=== PATIENT | female | born 1965 | race Caucasian/White ===

== ENCOUNTER 2024-01-04 13:43 | Emergency (ER) | payer MEDICAID, SELFPAY ==
[2024-01-04] VITALS (8 sets, daily range): BP systolic 105–147; BP diastolic 84–122; PULSE 43–96; RESP 11–18; TEMP 36.2; O2SAT 100
--- NOTE | 2024-01-04 13:30 | RT.EKG_ITS ---
APPROVED REPORT Exam: Resting ECG Reason for Exam: chest pain Patient Location: E HR:42 bpm ECG Measurements Heart Rate 42 AXIS MD 383 P 0 QRSd 85 QRS 77 QT 520 T 96 QTc 437 Conclusion Second degree AV block, Mobitz II...multiple P waves Inferior infarct, acute...ST>0.10mV, T upright, II III aVF Anterior infarct, acute...ST >0.25mV, V2-V5 Second-degree Mobitz 2 heart block rate of 42 bpm with significant inferior ST segment elevation with reciprocal lateral depression. No prior for comparison.
--- NOTE | 2024-01-04 13:45 | DI.RAD_ITS ---
Exam(s) XR PORTABLE CHEST AP EXAM: XR PORTABLE CHEST AP CLINICAL HISTORY: CP TECHNIQUE: 2D digital imaging was performed. COMPARISON: No exams were available for comparison FINDINGS: Limited by overlying monitoring leads and fibular later pads. LUNGS: Visualized portions of the lungs are clear. No pleural abnormality seen. HEART: Normal size. AORTA: Normal diameter. BONES: Unremarkable for age. Soft tissues: Unremarkable. IMPRESSION: Limited exam. No acute findings. DATA REPOSITORY: RADIATION DOSE DELIVERED:
--- NOTE | 2024-01-04 13:46 | W.ED.GENAD ---
Discharge Plan Disposition Patient Disposition: Transfer-Acute Inpatient Care Specific Acute Inpt Facility: [facility] Discharge Details Clinical Impression: ST elevation PA (STEMI), Mobitz type 2 second degree atrioventricular block Primary Care Provider: Unknown,Unknown ED Provider: Hernan Glover Home Meds and New Rx's Prescriptions: No Action No Known Home Meds HPI General Date/Time Provider Initiated Documentation: 01/04/24 13:46. HPI Narrative: MDM This is a 54-year-old female with elevated BMI family history of coronary artery disease with inferior lateral STEMI without contraindications to systemic thrombolytics for which patient received weight-based dose of TNK. No tearing quality to suggest aortic dissection. No shortness of breath or hypoxia nor tachycardia to suggest PE. Patient was maintained on pacer pads in the emergency department given her high degree heart block. She did not require pacing. She received 600 mg of clopidogrel heparin drip prehospital aspirin. Will deferred nitroglycerin given inferior PA. Patient did have COVID last week however has no signs of pericardial effusion so my suspicion is low for myocarditis so I did not feel she had a contraindication to lytics. No signs of heart failure. Not a dialysis patient to suggest increased risk for tamponade. No cough to suggest pneumonia. 2:45 PM I signed patient out at bedside to [facility]. Patient be transferred to [facility]. Patient metabolic panel showing mild anion gap mild hyperglycemia but normal bicarbonate. No prior for comparison. Normal renal function. No acute electrolyte abnormalities. Normal lipase. CBC showing leukocytosis but no anemia. No thrombocytopenia. Portable chest x-ray with no acute findings. Normal reassuring magnesium. Troponin elevated at 57 ng/L. Chronic conditions affecting the care of the patient: N/A History obtained from an outside historian: Paramedics External record review: N/A Diagnostic interpretations performed by me: Per my independent interpretation chest x-ray shows: No acute cardiopulmonary process Per my independent interpretation EKG shows: Second-degree Mobitz 2 heart block rate of 42 bpm with significant inferior ST segment elevation with reciprocal lateral depression. No prior for comparison. ]Medications: Heparin clopidogrel TNKase Social determinants of health affecting disposition: N/A Management discussed with[place] [facility] [place]/interventions considered: N/A Response to therapies provided: N/A HPI This is a previously healthy 58-year-old female brought in the emergency department via EMS in the setting of chest pressure found to have inferior ST segment elevation PA. Patient was reportedly mowing the lawn this morning. Subsequently she went inside. She developed sudden onset central chest pressure. It did not radiate. She felt nearly as if she was going to pass out. She lost control of her bowels. No prior history of similar symptoms. Patient denies history of hypertension hyperlipidemia diabetes. She is not a smoker nor drinker. Exam General: Pale-appearing in no acute distress speaking in complete sentences. Head: Normocephalic, atraumatic. Eye: Extraocular eye movements intact. No conjunctival injection. No scleral icterus. Ear, nose, mouth, throat: Grossly normal inspection. Normal voice, handling secretions normally. Neck: Trachea midline. Cardiovascular: Well-perfused distal extremities. Irregular bradycardic rate Respiratory: Nonlabored respiration. Clear lungs Gastrointestinal: Nondistended abdomen. Soft nontender Musculoskeletal: No significant lower extremity pitting edema. Moving all 4 extremities spontaneously. Skin: Normal for age and race, grossly normal temperature and turgor. No acute rash. Neurologic: Alert and appropriate, no apparent acute deficits. Psychiatric: Mood and manner are appropriate. Grooming and personal hygiene are appropriate. Related Data Home Medications ?Medication ?Instructions ?Recorded ?Confirmed Unknown [No Known Home Meds] 01/04/24 01/04/24 Allergies Allergy/AdvReac Type Severity Reaction Status Date / Time No Known Allergies Allergy Unverified 01/04/24 13:50 Medical Decision Making Quality:SDOH Health Related Social Needs: No Data to Display Critical Care Time Critical Care Time Critical Care Time: Yes Total Critical Care Time: 60 Attestation: Inferior STEMI high degree heart block PFSH All Active Problems (Updated 01/04/24 @ 14:52 by Hernan Gloevr MD) Mobitz type 2 second degree atrioventricular block (Acute) ST elevation PA (STEMI) (Acute) Social History Smoking/Tobacco Use Status: Never Smoking risk assessment performed?: Yes Alcohol Intake: current Alcohol Intake frequency: holidays/special occasions only Drug use: Never Substance use type: does not use Housing: house Do you feel safe at home: Yes Do you feel safe in your relationship?: Yes POCUS Exam (ED) Limited Cardiac Exam DATE OF EXAM: 01/04/24 TIME OF EXAM: 15:20 PROVIDER THAT PERFORMED THE STUDY: Hernan Glover IS THIS A REPEAT EXAM DURING THIS ENCOUNTER: no REASON FOR EXAM: Chest pain VISUALIZED STRUCTURES: Four Chambers, Left ventricle and LVOT VIEW OBTAINED: Apical 4-Chamber, Parasternal long-axis, Parasternal short-axis and Subxiphoid PERTINENT FINDINGS/IMPRESSION: No pericardial effusion and No RV dilation DIFFERENTIAL DIAGNOSES: Aortic outflow track less than 4 cm, good squeeze, RV less than LV, no significant pericardial effusion. Question inferior wall motion abnormality Exam complete
[2024-01-04 14:05] LABS: Abs Immature Grans 0.07 10^3/uL (0.0-0.06); Absolute Basophil Count 0.05 10^3/uL (0.0-0.2); Absolute Eosinophil Count 0.15 10^3/uL (0.0-0.7); Absolute Lymphocyte Count 2.76 10^3/uL (1.2-3.4); Absolute Monocyte Count 0.69 10^3/uL (0.1-0.8); Basophils % 0.4 %; Eosinophils % 1.2 %; HCT 42.9 % (36.0-46.0); HGB 14.1 g/dL (11.2-15.7); Immature Grans % 0.5 %; Lymphocytes % 21.5 %; MCH 29.9 pg (27.0-33.0); MCHC 32.9 % (32.0-36.0); MCV 91 fL (80-95); MPV 9.8 fL (8.0-11.0); Monocytes % 5.4 %; Platelet Count 362 10^3/uL (130-400); RBC 4.72 10^6/uL (3.93-5.22); RDW 12.5 % (11.7-14.6); RDW-SD 41.9 fL; WBC 12.85 10^3/uL (4.4-10.8)
[2024-01-04 14:07] LABS: Absolute Neutrophil Count 9.12 10^3/uL (1.2-6.7)
[2024-01-04] MEDS: Tenecteplase 50 MG KIT 45 MG IVP (14:07)
[2024-01-04] MEDS: Heparin in 0.45% NaCl 25,000 UNIT/250 ML BAG 10 UNIT IV (14:16)
[2024-01-04] MEDS: Clopidogrel 300 MG TAB 600 MG PO (14:20)
[2024-01-04 14:29] LABS: Anion Gap 14.3 mmol/L (3-11); BUN 16 mg/dL (7-18); CO2 24.7 mmol/L (21.0-32.0); CREATININE 0.9 mg/dL (0.55-1.02); Chloride 101 mmol/L (98-107); Estimated GFR 73.19 (mL/min/1.73m2); Glucose 200 mg/dL (74-106); Lipase 39 U/L (16-77); Magnesium 1.8 mg/dL (1.8-2.4); Potassium 3.5 mmol/L (3.5-5.1); Sodium 140 mmol/L (136-145)
[2024-01-04 14:31] LABS: PTT Activated 23.3 sec (23.6-32.8)
[2024-01-04 14:44] LABS: Troponin I 57 ng/L (<or=51)
[2024-01-04 14:46] LABS: Calcium 9.3 mg/dL (8.5-10.1)
== END 2024-01-04 14:51 | disposition short-term general hospital (02) ==
PROVIDERS: Emergency Provider Emergency Medicine
DX: I21.19 ST elevation (STEMI) myocardial infarction involving other coronary artery of inferior wall (principal); I44.1 Atrioventricular block, second degree
CPT/HCPCS: 80048; 80053; 83690; 86850; 86900; 86901; 93005; 93308; 96374; 99285; 71045; 83735; 84484; 85025; 85730; 93010; 99284; J1644; J3101

== ENCOUNTER 2024-01-30 09:00 | Outpatient (RCR) | payer MEDICAID, SELFPAY ==
--- NOTE | 2024-01-14 11:45 | RT.EKG_ITS ---
APPROVED REPORT Exam: Resting ECG Reason for Exam: baseline Patient Location: O HR:56 bpm ECG Measurements Heart Rate 56 AXIS SD 189 P -10 QRSd 100 QRS -30 QT 439 T -15 QTc 424 Conclusion Sinus rhythm...normal P axis, V-rate 50- 99 Abnormal R-wave progression, early transition...QRS area>0 in V2 Left ventricular hypertrophy...multiple LVH criteria Inferior infarct, age indeterminate...Q>35mS, T neg, II III aVF
== END 2024-01-31 23:59 | disposition home or self-care (01) ==
LOC: CR 09:00
PROVIDERS: Visit Provider Internal Medicine Cardiovascular Disease
DX: I21.4 Non-ST elevation (NSTEMI) myocardial infarction (principal); Z95.5 Presence of coronary angioplasty implant and graft; Z51.89 Encounter for other specified aftercare
CPT/HCPCS: S9472

== ENCOUNTER 2024-02-01 03:10 | Outpatient (CLI) | payer MEDICAID, SELFPAY ==
--- NOTE | 2024-02-05 08:36 | TELEFU_ITS ---
Date of service: 02/01/24 Time of Service: 10:00 Nutrition Note NOTE: MEt with Nica for nutrition visit - referred for post heart attack Nica came with multiple days of diet history recorded - affirmed this helps. Nica is drinking a minimum of 40oz water daily. She has a lot of great plant choices and keeps her animal portions to 3-4oz. We reviewed great foods to encorporate for heart health - brightly colored non- starchy veggies, garlic/onion family, intact whole grains. nuts/seeds, green tea/hibiscus tea, fatty fish, greens, legumes. We also reviewed good guidelines to know and measure periodically - getting no more than 25g added sugar most days and getting a minimum of 25g fiber most days. Also stressed importance of protein for fullness and to help slow/prevent muscle loss - patient currently participates at cardiac rehab here at [facility].. Affirmed her actions with activity and diet changes are looking good to help offset her genetics. encouraged to continue with current diet changes and habits. will contact with any questions or need for further resources, menu analysis. Time Spent in Nutritional Counseling and Treatment: 40 minutes
== END 2024-02-01 03:11 | disposition home or self-care (01) ==
LOC: DS 03:11
PROVIDERS: Visit Provider Dietitian, Registered
DX: I21.19 ST elevation (STEMI) myocardial infarction involving other coronary artery of inferior wall (principal)
CPT/HCPCS: 00123; 97802

== ENCOUNTER 2024-02-27 09:44 | Outpatient (RCR) | payer MEDICAID, SELFPAY | END 2024-03-01 23:59 | disposition home or self-care (01) | LOC: CR 09:44 | PROVIDERS: Visit Provider Internal Medicine Cardiovascular Disease | DX: I21.3 ST elevation (STEMI) myocardial infarction of unspecified site (principal); Z51.89 Encounter for other specified aftercare | CPT/HCPCS: S9472 ==

== ENCOUNTER 2024-03-14 01:16 | Outpatient (CLI) | payer MEDICAID, SELFPAY ==
[2024-03-14 10:46] LABS: Abs Immature Grans 0.02 10^3/uL (0.0-0.06); Absolute Basophil Count 0.02 10^3/uL (0.0-0.2); Absolute Eosinophil Count 0.09 10^3/uL (0.0-0.7); Absolute Lymphocyte Count 1.19 10^3/uL (1.2-3.4); Absolute Monocyte Count 0.39 10^3/uL (0.1-0.8); Absolute Neutrophil Count 3.39 10^3/uL (1.2-6.7); Basophils % 0.4 %; Eosinophils % 1.8 %; HCT 38.3 % (36.0-46.0); HGB 12.8 g/dL (11.2-15.7); Immature Grans % 0.4 %; Lymphocytes % 23.3 %; MCHC 33.4 % (32.0-36.0); MCV 90 fL (80-95); MPV 9.9 fL (8.0-11.0); Monocytes % 7.6 %; Neutrophils % 66.5 %; Platelet Count 273 10^3/uL (130-400); RBC 4.27 10^6/uL (3.93-5.22); RDW 12.8 % (11.7-14.6); RDW-SD 42.3 fL
[2024-03-14 11:02] LABS: ALT 28 U/L (14-59); AST 21 U/L (15-37); Albumin 3.7 g/dL (3.4-5.0); Alkaline Phosphatase 61 U/L (46-116); Bilirubin, Direct 0.1 mg/dL (0.0-0.2); Bilirubin, Total 0.34 mg/dL (0.2-1.0); Total Protein 7.6 g/dL (6.4-8.2)
== END 2024-03-14 01:17 | disposition home or self-care (01) ==
LOC: LBO 01:16
PROVIDERS: Visit Provider Registered Nurse
DX: I21.02 ST elevation (STEMI) myocardial infarction involving left anterior descending coronary artery (principal)
CPT/HCPCS: 36415; 80076; 85025

== ENCOUNTER 2024-03-28 09:03 | Outpatient (RCR) | payer MEDICAID, SELFPAY | END 2024-04-01 23:59 | disposition home or self-care (01) | LOC: CR 09:03 | PROVIDERS: Visit Provider Internal Medicine Cardiovascular Disease | DX: I21.09 ST elevation (STEMI) myocardial infarction involving other coronary artery of anterior wall (principal); Z95.5 Presence of coronary angioplasty implant and graft; Z51.89 Encounter for other specified aftercare | CPT/HCPCS: S9472 ==

== ENCOUNTER 2024-05-01 03:53 | Outpatient (CLI) | payer MEDICAID, SELFPAY ==
[2024-05-01 10:07] LABS: Hemoglobin A1C 5.9 % (<5.7)
[2024-05-01 10:35] LABS: Calculated LDL 59 mg/dL (<100); Cholesterol 125 mg/dL (<200); Glucose 103 mg/dL (74-106); HDL Cholesterol 61 mg/dL (40-60); Triglyceride 29 mg/dL (<150); Vitamin D 25 Total 51.2 ng/mL (30-100)
[2024-05-02 09:49] LABS: Homocysteine 9.7 umol/L (5.0-13.9)
== END 2024-05-01 03:54 | disposition home or self-care (01) ==
PROVIDERS: PCP Naturopath; Visit Provider Naturopath
DX: Z13.228 Encounter for screening for other metabolic disorders (principal); Z13.220 Encounter for screening for lipoid disorders; Z13.1 Encounter for screening for diabetes mellitus; Z13.21 Encounter for screening for nutritional disorder
CPT/HCPCS: 36415; 80061; 82306; 82947; 83090; 83036

== ENCOUNTER 2024-05-02 10:21 | Outpatient (RCR) | payer MEDICAID, SELFPAY | END 2024-05-02 23:59 | disposition home or self-care (01) | LOC: CR 10:21 | PROVIDERS: PCP Naturopath; Visit Provider Internal Medicine Cardiovascular Disease | DX: I21.3 ST elevation (STEMI) myocardial infarction of unspecified site (principal); Z51.89 Encounter for other specified aftercare | CPT/HCPCS: S9472 ==

== ENCOUNTER 2024-05-30 11:05 | Outpatient (RCR) | payer SELFPAY ==
[2024-05-07 11:29] VITALS: BP 124/76; PULSE 76
[2024-05-09 11:23] VITALS: BP 124/61; PULSE 63
[2024-05-21 12:14] VITALS: BP 125/74; PULSE 72
[2024-05-23 11:06] VITALS: BP 121/63; PULSE 81
[2024-05-28 12:27] VITALS: BP 140/68; PULSE 68
[2024-05-30 11:26] VITALS: BP 144/73; PULSE 67; O2SAT 98
== END 2024-05-30 23:59 | disposition home or self-care (01) ==
LOC: CR 11:05
PROVIDERS: PCP Naturopath; Visit Provider Internal Medicine Cardiovascular Disease
DX: R69 Illness, unspecified (principal)

== ENCOUNTER 2024-06-27 11:18 | Outpatient (RCR) | payer SELFPAY ==
[2024-06-04 11:18] VITALS: BP 133/73; PULSE 73
[2024-06-06 11:07] VITALS: BP 117/74; PULSE 77
[2024-06-11 11:12] VITALS: BP 115/59; PULSE 60
[2024-06-18 11:16] VITALS: BP 136/74; PULSE 63
[2024-06-20 15:00] VITALS: BP 132/70; PULSE 63
[2024-06-25 11:31] VITALS: PULSE 63
[2024-06-25 11:42] VITALS: BP 130/78
[2024-06-27 11:31] VITALS: BP 142/75; PULSE 65
== END 2024-06-30 23:59 | disposition home or self-care (01) ==
LOC: CR 11:18
PROVIDERS: PCP Naturopath; Visit Provider Internal Medicine Cardiovascular Disease
DX: R69 Illness, unspecified (principal)

== ENCOUNTER 2024-07-29 13:09 | Outpatient (RCR) | payer SELFPAY ==
[2024-07-01 00:21] VITALS: BP 142/75; PULSE 65
[2024-07-04 12:15] VITALS: BP 134/81; PULSE 61
[2024-07-11 11:00] VITALS: BP 128/60; PULSE 63
[2024-07-18 11:08] VITALS: BP 131/68; PULSE 73
[2024-07-22 14:36] VITALS: BP 112/59; PULSE 66
[2024-07-24 14:00] VITALS: BP 135/59; PULSE 78
[2024-07-29 13:16] VITALS: BP 121/75; PULSE 62
== END 2024-07-30 23:59 | disposition home or self-care (01) ==
LOC: CR 13:09
PROVIDERS: PCP Naturopath; Visit Provider Internal Medicine Cardiovascular Disease

== ENCOUNTER 2024-08-12 04:00 | Outpatient (CLI) | payer MEDICAID, SELFPAY ==
[2024-08-12 10:38] LABS: Hemoglobin A1C 5.7 % (<5.7)
[2024-08-12 21:24] LABS: Calculated LDL 57 mg/dL (<100); Cholesterol 128 mg/dL (<200); HDL Cholesterol 63 mg/dL (>or=50); Triglyceride 41 mg/dL (<150)
== END 2024-08-12 04:01 | disposition home or self-care (01) ==
LOC: LBO 04:00
PROVIDERS: PCP Naturopath; Visit Provider Naturopath
DX: Z13.220 Encounter for screening for lipoid disorders (principal); Z13.1 Encounter for screening for diabetes mellitus
CPT/HCPCS: 36415; 80061; 83036

== ENCOUNTER 2024-08-21 11:10 | Outpatient (RCR) | payer SELFPAY ==
[2024-07-31 00:21] VITALS: BP 142/75; PULSE 65
[2024-08-05 13:35] VITALS: BP 131/71; PULSE 66
[2024-08-07 13:18] VITALS: BP 117/68; PULSE 55
[2024-08-12 13:23] VITALS: BP 135/77; PULSE 69
[2024-08-21 11:22] VITALS: BP 132/71; PULSE 62
== END 2024-08-30 23:59 | disposition home or self-care (01) ==
LOC: CR 11:10
PROVIDERS: PCP Naturopath; Visit Provider Internal Medicine Cardiovascular Disease
DX: R69 Illness, unspecified (principal)

== ENCOUNTER 2024-09-25 11:00 | Outpatient (RCR) | payer SELFPAY ==
[2024-08-31 00:23] VITALS: BP 142/75; PULSE 65
[2024-09-02 11:21] VITALS: BP 133/72; PULSE 62
[2024-09-04 13:58] VITALS: BP 114/72; PULSE 79
[2024-09-11 11:36] VITALS: BP 127/73; PULSE 61
[2024-09-18 12:28] VITALS: BP 150/69; PULSE 57
[2024-09-23 14:47] VITALS: BP 128/75; PULSE 66
[2024-09-25 11:17] VITALS: BP 129/78; PULSE 56
== END 2024-09-29 23:59 | disposition home or self-care (01) ==
LOC: CR 11:00
PROVIDERS: PCP Naturopath; Visit Provider Internal Medicine Cardiovascular Disease
DX: R69 Illness, unspecified (principal)

== ENCOUNTER 2024-10-30 11:00 | Outpatient (RCR) | payer SELFPAY ==
[2024-10-02 11:19] VITALS: BP 136/84; PULSE 58; O2SAT 98
[2024-10-07 13:42] VITALS: BP 122/66; PULSE 62
[2024-10-09 13:16] VITALS: BP 128/68; PULSE 64
[2024-10-14 11:09] VITALS: BP 118/71; PULSE 71
[2024-10-16 10:55] VITALS: BP 117/68; PULSE 68; O2SAT 95
[2024-10-21 12:52] VITALS: BP 121/71; PULSE 69
[2024-10-23 11:01] VITALS: BP 144/73; PULSE 69
[2024-10-28 11:15] VITALS: BP 133/63; PULSE 64
[2024-10-30 11:14] VITALS: BP 126/73; PULSE 58; O2SAT 97
== END 2024-10-30 23:59 | disposition home or self-care (01) ==
LOC: CR 11:00
PROVIDERS: PCP Naturopath; Visit Provider Internal Medicine Cardiovascular Disease
DX: R69 Illness, unspecified (principal)

== ENCOUNTER 2024-11-27 11:00 | Outpatient (RCR) | payer SELFPAY ==
[2024-10-31 00:11] VITALS: BP 126/73; PULSE 58
[2024-11-04 13:54] VITALS: BP 127/74; PULSE 58
[2024-11-06 11:27] VITALS: BP 123/78; PULSE 62; O2SAT 96
[2024-11-11 11:00] VITALS: BP 114/61; PULSE 61
[2024-11-13 11:08] VITALS: BP 141/74; PULSE 60
[2024-11-20 11:19] VITALS: BP 131/70; PULSE 54
[2024-11-25 11:18] VITALS: BP 126/63; PULSE 55
[2024-11-27 10:47] VITALS: BP 130/76; PULSE 58; O2SAT 96
== END 2024-11-30 23:59 | disposition home or self-care (01) ==
LOC: CR 11:00
PROVIDERS: PCP Naturopath; Visit Provider Internal Medicine Cardiovascular Disease
DX: R69 Illness, unspecified (principal)

== ENCOUNTER 2024-12-25 11:00 | Outpatient (RCR) | payer SELFPAY ==
[2024-12-02 11:27] VITALS: BP 126/65; PULSE 66
[2024-12-04 12:59] VITALS: BP 127/74; PULSE 62
[2024-12-09 11:14] VITALS: BP 132/80; PULSE 64
[2024-12-11 11:00] VITALS: BP 126/77; PULSE 79
[2024-12-18 15:01] VITALS: BP 126/78; PULSE 57
[2024-12-25 11:00] VITALS: BP 116/73; PULSE 69
== END 2024-12-30 23:59 | disposition home or self-care (01) ==
LOC: CR 11:00
PROVIDERS: PCP Naturopath; Visit Provider Internal Medicine Cardiovascular Disease
DX: R69 Illness, unspecified (principal)

== ENCOUNTER 2025-01-29 11:00 | Outpatient (RCR) | payer SELFPAY ==
[2024-12-31 00:10] VITALS: BP 116/73; PULSE 69
[2025-01-01 11:22] VITALS: BP 121/75; PULSE 68
[2025-01-06 11:31] VITALS: BP 133/71; PULSE 60
[2025-01-13 11:27] VITALS: BP 134/84; PULSE 68
[2025-01-15 11:23] VITALS: BP 115/65; PULSE 74
[2025-01-20 11:30] VITALS: BP 123/79; PULSE 68
[2025-01-22 11:39] VITALS: BP 108/75; PULSE 68
[2025-01-29 10:58] VITALS: BP 123/67; PULSE 56; O2SAT 96
== END 2025-01-30 23:59 | disposition home or self-care (01) ==
LOC: CR 11:00
PROVIDERS: PCP Naturopath; Visit Provider Internal Medicine Cardiovascular Disease
DX: R69 Illness, unspecified (principal)

== ENCOUNTER 2025-02-19 08:49 | Day surgery (SDC) | payer MEDICAID, SELFPAY ==
--- NOTE | 2025-02-19 05:44 | W.ANESPRE ---
General Info Date of Service Date Performed: 02/19/25 Height: 5 ft 4 in Weight: 75.75 kg Body Mass Index (BMI): 28.6 Surgical Procedure: Operation Date: 02/19/25 10:35 Proposed Procedure Side Surgeon miguel Wong MD Meds Allergies and Home Medications Allergies Allergy/AdvReac Type Severity Reaction Status Date / Time gluten Allergy Mild Diarrhea Verified 02/19/25 09:21 Home Medication Medication Instructions Recorded bisacodyl 5 mg tablet,delayed 5 mg PO ONCE #4 tabs 01/29/25 release (Dulcolax (bisacodyl)) losartan 25 mg tablet 25 mg PO DAILY 01/29/25 metoprolol succinate 25 mg 25 mg PO DAILY 01/29/25 tablet,extended release 24 hr nitroglycerin 0.4 mg sublingual 0.4 mg sublingual Q5-15M PRN 01/29/25 tablet polyethylene glycol 3350 17 17 g PO ONCE #238 grams 01/29/25 gram/dose oral powder rosuvastatin 20 mg tablet 20 mg PO DAILY 01/29/25 aspirin 81 mg tablet 81 mg PO DAILY 01/30/25 Current Visit Medications: Current Medications Generic Name Dose Route Start Last Admin Trade Name Freq PRN Reason Stop Dose Admin Ringer's Solution 1,000 mls @ 80 mls/hr 02/19/25 06:00 IV 02/19/25 23:59 INFUSION EDDY IV Miscellaneous Supplies 1 each 02/19/25 06:00 Iv Access IV 02/19/25 23:59 DIRECTED EDDY Sodium Biphosphate/Sodium Phosphate 133 ml 02/19/25 06:00 Na Phosphate Enema-Adult 133 Ml Btl IL 02/19/25 23:59 DIRECTED PRN Sodium Chloride 0 ml 02/19/25 06:00 Normal Saline Flush 10 Ml Syr IV 02/19/25 23:59 PRN PRN Sodium Chloride 0 ml 02/19/25 06:00 Normal Saline 10 Ml Vial IJ 02/19/25 23:59 DIRECTED PRN Sterile Water 0 ml 02/19/25 06:00 Water,Injection,Sterile 10 Ml Vial IJ 02/19/25 23:59 DIRECTED PRN PFSH Medical History Medical History Celiac disease ST elevation SD (STEMI) Pure hypercholesterolemia Surgical History Surgical History Hx of heart artery stent x2 History of cardiac cath (~01/2024) Tobacco Smoking/Tobacco Use Status: Never Alcohol Alcohol Intake: current Alcohol intake frequency: holidays/special occasions only Substance Use Substance use: Never Substance use type: does not use Vital Signs and Lab Results Vital Signs Most Recent Vital Signs in EMR: Temp Pulse Resp BP Pulse Ox 36.5 C 64 12 140/90 99 02/19/25 09:24 02/19/25 09:24 02/19/25 09:24 02/19/25 09:24 02/19/25 09:24 Imaging and Studies Imaging and Studies Study information below may be from another EMR and interpreted by another provider. Please see original notes in EMR for more complete details. EKG Summary: 01/15/24 Conclusion Sinus rhythm...normal P axis, V-rate 50- 99 Abnormal R-wave progression, early transition...QRS area>0 in V2 Left ventricular hypertrophy...multiple LVH criteria Inferior infarct, age indeterminate...Q>35mS, T neg, II III aVF Anesthesia Assessment and Plan Anesthesia History Personal History: No History of Anesthesia Complications Family History: No Family History of Anesthesia Complications Exercise Tolerance Exercise Tolerance: Metabolic Equivalents>4 Pertinent Negatives Pertinent Negatives: No Symptoms of GERD, No Major Cardiovascular Symptoms or Complaints, No Major Pulmonary Symptoms or Complaints and No History of CVA/TIA Cardiac & Pulmonary Exam Cardiac Exam: Normal S1/S2 Heart Sounds Pulmonary Exam: Clear Bilateral Breath Sounds Implantable Cardiac Device Does patient have a Pacemaker or an ICD?: No Airway Exam Known Difficult Airway: No Mallampati Class: 2 Mouth Opening: Normal (> 3cm) Thyromental Distance: Greater than 3 cm Neck Range of Motion: Full ROM Neck Circumference: Normal Teeth Condition: Normal Dentition ASA Classification ASA Score: ASA 2 Emergency Case?: No NPO Status NPO Status: NPO Clears >2 hours, Solids >8 hours Anesthesia Plan Resuscitation Status: Full Code Anesthesia Technique: General Anesthesia Airway Planned: Natural Airway Monitors Used: Standard Monitors
[2025-02-19 09:24] VITALS: BP 140/90; PULSE 64; RESP 12; TEMP 36.5; O2SAT 99
[2025-02-19] MEDS: Lactated Ringers 1,000 ML 80 ML IV (09:46)
[2025-02-19 10:34] VITALS: BMI 28.6
--- NOTE | 2025-02-19 10:47 | W.PM.DSUDISC ---
Date of service: 02/19/25 Discharge Plan Disposition Patient Disposition: Home Condition: Stable Discharge Details Reason For Visit: colonoscopy Attending Provider: Moraima Wong Primary Care Provider: Husam Yost Home Meds and New Rx's Prescriptions: Continued losartan 25 mg tablet 25 mg PO DAILY nitroglycerin 0.4 mg tablet, sublingual 0.4 mg sublingual Q5-15M PRN Rx Instructions: do not exceed 3 doses per episode metoprolol succinate 25 mg tablet extended release 24 hr 25 mg PO DAILY rosuvastatin 20 mg tablet 20 mg PO DAILY aspirin 81 mg tablet 81 mg PO DAILY Discontinued bisacodyl [Dulcolax (bisacodyl)] 5 mg tablet,delayed release (DR/EC) 5 mg PO ONCE Qty: 4 0RF Rx Instructions: Take per colonoscopy instructions provided by ordering providers office polyethylene glycol 3350 17 gram/dose powder 17 g PO ONCE Qty: 238 0RF Rx Instructions: Take per colonoscopy instructions provided by ordering providers office Discharge Instructions Additional Instructions: Normal colonoscopy. Zero polyps. Next screening colonoscopy will be due in 10 years. Your colon was somewhat narrow, Id call it medium in terms of difficulty to move through. That being said your prep was excellent, and I had no trouble or concern about your safety or visibility inside the colon at any point. No unusual findings. Healthy colon and rectum without polyps. Good prep. Stand Alone Forms: Portal Information Activity:: Activity as Tolerated Diet:: As Tolerated Discharge Orders Discharge Orders: Discharge Order (Routine); Ordered 02/19/25 Ordered By: Moraima Wong DS: Diagnosis Discharge Diagnosis (1) Encounter for screening colonoscopy: Status: Acute
--- NOTE | 2025-02-19 10:49 | W.COLOREPORT ---
Date of service: 02/19/25 Time of Service: 11:13 Colonoscopy Report Date of procedure: 02/19/25 Pre-op diagnosis general: Screening for colorectal cancer Post-op diagnosis procedure note: same Procedure: Colonoscopy Surgeon: Moraima Wong Anesthesia Type: General:No Airway Estimated blood loss (mL): 0 Pathology: none sent Complications: None Indications: screening for colorectal cancer Prep: Miralax/Dulcolax (good/excellent) Procedure Description: Informed consent was obtained and the patient was taken to the procedure area. The patient was placed in left lateral decubitus position on the procedure table. Timeout was performed. Anesthesia was induced. A lubricated colonoscope was inserted through the anus and passed to the cecum. The cecum was identified by the ileocecal valve and the appendiceal orifice. The scope was then slowly withdrawn and the colonic and rectal mucosa examined. TI intubated and examined. It appears normal. There are no colon or rectal mass lesions, polyps, AVMs. There is no inflammatory change. No diverticulosis was seen. The scope was retroflexed in the anorectal junction examined. Uncomplicated internal hemorrhoids present. Assessment and plan: Screening for colorectal cancer Normal colonoscopy. Next screening colonoscopy will be due in 10 years.
[2025-02-19 11:17] VITALS: BP 129/80; PULSE 70; RESP 16; TEMP 36.4; O2SAT 97
--- NOTE | 2025-02-19 11:42 | W.ANESPOSTOP ---
Postoperative Evaluation Date, Time and Location Date Performed: 02/19/25 Time Performed: 11:17 Patient Location: Day Surgery Unit Vital Signs Most Recent Imported Vital Signs: Most Recent Vital Signs Temp Pulse Resp BP Pulse Ox 36.4 C L 70 16 129/80 97 02/19/25 11:17 02/19/25 11:17 02/19/25 11:17 02/19/25 11:17 02/19/25 11:17 Pain Score Most Recent Pain Score: Most Recent Pain Score Pain Level 0 02/19/25 11:17 Assessment Mental Status: Awake (Alert & Oriented to Patient Baseline) Airway and Respiratory Function: Patent airway with normal (patient baseline) respiratory exam Cardiovascular Function: Hemodynamically Stable Hydration Status: Adequately Hydrated Nausea & Vomiting: No Nausea or Vomiting Pain: Pt. Denies Any Pain Peripheral Nerve Block: Patient did not receive a nerve block
[2025-02-19 11:45] VITALS: BP 131/78; PULSE 66; RESP 16; TEMP 36.4; O2SAT 99
== END 2025-02-19 11:58 | disposition home or self-care (01) ==
PROVIDERS: PCP Naturopath; Visit Provider Surgery
PROC: 0DJD8ZZ Inspection of Lower Intestinal Tract, Via Natural or Artificial Opening Endoscopic (ICD-10-PCS; CPT 45378; principal; 2025-02-19 10:30)
DX: Z12.11 Encounter for screening for malignant neoplasm of colon (principal)
CPT/HCPCS: 45378; J2003; J2704

== ENCOUNTER 2025-02-24 11:00 | Outpatient (RCR) | payer SELFPAY ==
[2025-01-31 00:21] VITALS: BP 123/67; PULSE 56
[2025-02-03 11:41] VITALS: BP 137/73; PULSE 56
[2025-02-05 11:23] VITALS: BP 136/69; PULSE 63
[2025-02-10 11:11] VITALS: BP 129/7; PULSE 63
[2025-02-17 11:54] VITALS: BP 151/70; PULSE 63
[2025-02-24 11:12] VITALS: BP 133/74; PULSE 55
== END 2025-03-01 23:59 | disposition home or self-care (01) ==
LOC: CR 11:00
PROVIDERS: PCP Naturopath; Visit Provider Internal Medicine Cardiovascular Disease
DX: R69 Illness, unspecified (principal)

== ENCOUNTER 2025-03-05 11:03 | Outpatient (RCR) | payer SELFPAY ==
[2025-03-02 00:08] VITALS: BP 133/74; PULSE 55
[2025-03-05 11:13] VITALS: BP 131/74; PULSE 74
== END 2025-04-01 23:59 | disposition home or self-care (01) ==
LOC: CR 11:03
PROVIDERS: PCP Naturopath; Visit Provider Internal Medicine Cardiovascular Disease
DX: R69 Illness, unspecified (principal)

== ENCOUNTER 2025-03-08 07:53 | Inpatient (IN) | payer MEDICAID, SELFPAY ==
[2025-03-08] VITALS (41 sets, daily range): BP systolic 132–178; BP diastolic 74–100; PULSE 64–99; RESP 12–24; TEMP 36.6–37; O2SAT 94–100
--- NOTE | 2025-03-08 07:45 | RT.EKG_ITS ---
APPROVED REPORT Exam: Resting ECG Reason for Exam: chest pain, dizzy Patient Location: E HR:78 bpm ECG Measurements Heart Rate 78 AXIS AZ 176 P 21 QRSd 92 QRS -40 QT 397 T 34 QTc 453 Conclusion Sinus rhythm...normal P axis, V-rate 60- 99 Inferior infarct, old...Q >35mS, II III aVF
[2025-03-08] MEDS: ALPRAZolam 0.25 MG TAB PO (08:47)
[2025-03-08 08:59] LABS: Abs Immature Grans 0.03 10^3/uL (0.0-0.06); HCT 43.0 % (36.0-46.0); HGB 14.1 g/dL (11.2-15.7); Immature Grans % 0.4 %; MCH 28.8 pg (27.0-33.0); MCHC 32.8 % (32.0-36.0); MCV 88 fL (80-95); MPV 9.6 fL (8.0-11.0); Platelet Count 330 10^3/uL (130-400); RBC 4.90 10^6/uL (3.93-5.22); RDW 12.8 % (11.7-14.6); RDW-SD 41.1 fL; WBC 7.42 10^3/uL (4.4-10.8)
[2025-03-08 09:18] LABS: Magnesium 1.8 mg/dL (1.6-2.6)
[2025-03-08 09:19] LABS: ALT 38 U/L (10-49); AST 44 U/L (<34); Albumin 4.7 g/dL (3.2-5.0); Alkaline Phosphatase 63 U/L (46-116); Anion Gap 9.7 mmol/L (3-11); BUN 11 mg/dL (9-23); Bilirubin, Total 0.50 mg/dL (0.2-1.2); CO2 27.3 mmol/L (20.0-31.0); Calcium 9.3 mg/dL (8.3-10.6); Chloride 105 mmol/L (98-107); Glucose 130 mg/dL (74-106); Potassium 3.6 mmol/L (3.5-5.1); Sodium 142 mmol/L (136-145); Total Protein 8.0 g/dL (5.7-8.2)
--- NOTE | 2025-03-08 09:30 | DI.RAD_ITS ---
Exam(s) XR PORTABLE CHEST AP EXAM: XR PORTABLE CHEST AP CLINICAL HISTORY: pain. TECHNIQUE: 2D digital imaging was performed. COMPARISON: CR XR PORTABLE CHEST AP from 01/04/2024 FINDINGS: Single AP portable view. Heart size is upper normal. The mediastinum is not widened. Lungs are clear. No infiltrates nor obvious pleural effusions. Benign calcified granuloma in the lower right lung again noted. IMPRESSION: No acute pulmonary findings on this single AP portable view of the chest. DATA REPOSITORY: RADIATION DOSE DELIVERED:
[2025-03-08 09:37] LABS: Troponin I 1700 ng/L (<35)
[2025-03-08] MEDS: Heparin in 0.45% NaCl 25,000 UNIT/250 ML BAG 9.5 UNIT IVINF (09:57)
--- NOTE | 2025-03-08 09:59 | W.ED.GENAD ---
Discharge Plan Disposition Patient Disposition: Admit to [facility] Condition: Serious Discharge Details Clinical Impression: Acute non-ST elevation myocardial infarction (NSTEMI) Primary Care Provider: Husam Yost ED Provider: Orlando Gutiérrez Home Meds and New Rx's Prescriptions: No Action losartan 25 mg tablet 25 mg PO DAILY nitroglycerin 0.4 mg tablet, sublingual 0.4 mg sublingual Q5-15M PRN Rx Instructions: do not exceed 3 doses per episode metoprolol succinate 25 mg tablet extended release 24 hr 25 mg PO DAILY rosuvastatin 20 mg tablet 20 mg PO DAILY aspirin 81 mg tablet 81 mg PO DAILY HPI General Mode of arrival: ambulatory. Date/Time Provider Initiated Documentation: 03/08/25 07:56. Limitations to Documentation: no limitations. Information obtained by: patient. HPI Narrative: 59-year-old female with history of coronary artery disease, status post STEMI 01/23, MARCIA to LAD and RCA, returns today with chest pain. Patient notes over the past week she has had intermittent exertional chest pain that resolves with rest. This morning she woke up with chest pain that was present at rest but has since resolved. She had associated dizziness and nausea. Pain described as squeezing and pressure. Related Data Home Medications ?Medication ?Instructions ?Recorded ?Confirmed losartan 25 mg tablet 25 mg PO DAILY 01/29/25 03/08/25 metoprolol succinate 25 mg 25 mg PO DAILY 01/29/25 03/08/25 tablet,extended release 24 hr nitroglycerin 0.4 mg sublingual 0.4 mg sublingual Q5-15M PRN 01/29/25 03/08/25 tablet rosuvastatin 20 mg tablet 20 mg PO DAILY 01/29/25 03/08/25 aspirin 81 mg tablet 81 mg PO DAILY 01/30/25 03/08/25 Allergies Allergy/AdvReac Type Severity Reaction Status Date / Time gluten Allergy Mild Diarrhea Verified 03/08/25 07:58 General Stated Complaint: Chest Pain ROSA: 3 Exam Const General: cooperative and no acute distress HENMT Mouth: moist mucous membranes Eyes Conjunctivae: normal conjunctivae Sclera: normal sclerae Resp Auscultation: clear to auscultation bilaterally, no rales, no rhonchi and no wheezes Cardio Rate: regular rate and not tachycardic Rhythm: regular rhythm Heart Sounds: no gallops, no murmurs and no rubs GI Palpation: soft, not firm, no guarding, no masses, not rigid and nontender Skin General skin exam: no rashes or lesions noted Neuro General: patient alert, patient awake and tone normal Extrem General: no calf tenderness and no edema Psych Appearance: grossly normal Mental Status: mental status grossly normal Affect: anxious affect Course Vital Signs Vital signs: Vital Signs Temperature 36.6 C 03/08/25 07:59 Pulse 90 03/08/25 07:59 Respiratory Rate 18 03/08/25 07:59 Blood Pressure 160/80 H 03/08/25 07:59 Pulse Oximetry 99 03/08/25 07:59 Temperature 36.6 C 03/08/25 07:59 Temperature Source Oral 03/08/25 07:59 Pulse 71 03/08/25 08:31 Pulse 81 03/08/25 08:20 Respiratory Rate 18 03/08/25 08:20 Respiratory Effort Normal 03/08/25 08:08 Respiratory Depth Normal 03/08/25 08:08 Respiratory Pattern Normal 03/08/25 08:08 Blood Pressure 153/75 H 03/08/25 08:31 Blood Pressure Mean 102 03/08/25 08:31 Blood Pressure Position Supine 03/08/25 07:59 Pulse Oximetry 97 03/08/25 08:31 Oxygen Delivery Method Room Air 03/08/25 07:59 Oxygen Flow Rate 0 03/08/25 07:59 Pain Level 4 03/08/25 08:08 Lab/Test Results Lab/Test Results: Laboratory Tests Range/Units 03/08/25 08:23 WBC (4.4-10.8) 10^3/uL 7.42 RBC (3.93-5.22) 10^6/uL 4.90 Hgb (11.2-15.7) g/dL 14.1 Hct (36.0-46.0) % 43.0 MCV (80-95) fL 88 MCH (27.0-33.0) pg 28.8 MCHC (32.0-36.0) % 32.8 RDW (11.7-14.6) % 12.8 Plt Count (130-400) 10^3/uL 330 MPV (8.0-11.0) fL 9.6 Immature Gran % % 0.4 Neutrophils % % 77.6 Lymphocytes % % 15.4 Monocytes % % 5.8 Eosinophils % % 0.5 Basophils % % 0.3 Nucleated RBC % (0.0-0.3) % 0.0 Absolute Neutrophils (1.2-6.7) 10^3/uL 5.76 Absolute Lymphocytes (1.2-3.4) 10^3/uL 1.14 L Absolute Monocytes (0.1-0.8) 10^3/uL 0.43 Absolute Eosinophils (0.0-0.7) 10^3/uL 0.04 Absolute Basophils (0.0-0.2) 10^3/uL 0.02 Sodium (136-145) mmol/L 142 Potassium (3.5-5.1) mmol/L 3.6 Chloride (98-107) mmol/L 105 Carbon Dioxide (20.0-31.0) mmol/L 27.3 Anion Gap (3-11) mmol/L 9.7 BUN (9-23) mg/dL 11 Creatinine (0.55-1.02) mg/dL 0.70 Est GFR (CKD-EPI 2020) (mL/min/1.73m2) 84.88 Glucose (74-106) mg/dL 130 H Calcium (8.3-10.6) mg/dL 9.3 Magnesium (1.6-2.6) mg/dL 1.8 Total Bilirubin (0.2-1.2) mg/dL 0.50 AST (<34) U/L 44 H ALT (10-49) U/L 38 Alkaline Phosphatase (46-116) U/L 63 Troponin I (<35) ng/L 1700 H* Total Protein (5.7-8.2) g/dL 8.0 Albumin (3.2-5.0) g/dL 4.7 Medical Decision Making 59-year-old female with history of coronary artery disease status post STEMI 01/23, here with intermittent exertional chest pain over the past week, chest pain at rest this morning, now resolved, associated nausea and dizziness. Patient hypertensive on arrival. Patient is anxious. Concern for ACS. EKG was reviewed and interpreted by me: Please report, sinus rhythm 78 bpm, no STEMI. Nondiagnostic. Labs reviewed and troponin is significantly elevated at 1700. Results discussed with patient. Patient reassessed and anxiety improved after Xanax. I have contacted [facility] transfer center to discuss transfer with cardiology. Patient did take aspirin 81 mg today. I will give additional 243 mg. I will start heparin bolus and infusion. -- Spoke with Vivi, [facility] cardiology, Dr. Hawthorne to accept patient. Plan for transfer when bed available - likely tomorrow AM. Recommends echo in AM. Recommends call with worsening condition including return of pain or ecg changes to consider more emergent transfer. 1000 --case was reviewed with Dr. Guadarrama, on-call hospitalist, discussed ED presentation and course, he will admit the patient. Lab Data Lab results reviewed: Yes I reviewed the patient's lab results. Labs: Laboratory Tests Range/Units 03/08/25 08:23 WBC (4.4-10.8) 10^3/uL 7.42 RBC (3.93-5.22) 10^6/uL 4.90 Hgb (11.2-15.7) g/dL 14.1 Hct (36.0-46.0) % 43.0 MCV (80-95) fL 88 MCH (27.0-33.0) pg 28.8 MCHC (32.0-36.0) % 32.8 RDW (11.7-14.6) % 12.8 Plt Count (130-400) 10^3/uL 330 MPV (8.0-11.0) fL 9.6 Immature Gran % % 0.4 Neutrophils % % 77.6 Lymphocytes % % 15.4 Monocytes % % 5.8 Eosinophils % % 0.5 Basophils % % 0.3 Nucleated RBC % (0.0-0.3) % 0.0 Absolute Neutrophils (1.2-6.7) 10^3/uL 5.76 Absolute Lymphocytes (1.2-3.4) 10^3/uL 1.14 L Absolute Monocytes (0.1-0.8) 10^3/uL 0.43 Absolute Eosinophils (0.0-0.7) 10^3/uL 0.04 Absolute Basophils (0.0-0.2) 10^3/uL 0.02 APTT (20.6-30.2) sec 25.6 Sodium (136-145) mmol/L 142 Potassium (3.5-5.1) mmol/L 3.6 Chloride (98-107) mmol/L 105 Carbon Dioxide (20.0-31.0) mmol/L 27.3 Anion Gap (3-11) mmol/L 9.7 BUN (9-23) mg/dL 11 Creatinine (0.55-1.02) mg/dL 0.70 Est GFR (CKD-EPI 2020) (mL/min/1.73m2) 84.88 Glucose (74-106) mg/dL 130 H Calcium (8.3-10.6) mg/dL 9.3 Magnesium (1.6-2.6) mg/dL 1.8 Total Bilirubin (0.2-1.2) mg/dL 0.50 AST (<34) U/L 44 H ALT (10-49) U/L 38 Alkaline Phosphatase (46-116) U/L 63 Troponin I (<35) ng/L 1700 H* Total Protein (5.7-8.2) g/dL 8.0 Albumin (3.2-5.0) g/dL 4.7 Critical Care Time Critical Care Time Critical Care Time: Yes Total Critical Care Time: 40 Attestation: Due to a high probability of clinically significant, life threatening deterioration, the patient required my highest level of preparedness to intervene emergently and I personally spent this critical care time directly and personally managing the patient. This critical care time included obtaining a history; examining the patient; pulse oximetry; ordering and review of studies; arranging urgent treatment with development of a management plan; evaluation of patient's response to treatment; frequent reassessment; and, discussions with other providers. This critical care time was performed to assess and manage the high probability of imminent, life-threatening deterioration that could result in multi-organ failure. It was exclusive of separately billable procedures and treating other patients and teaching time. Please see MDM section and the rest of the note for further information on patient assessment and treatment. PFSH All Active Problems (Updated 03/08/25 @ 10:06 by Orlando Gutiérrez MD) Acute non-ST elevation myocardial infarction (NSTEMI) (Acute) HTN (hypertension) (Chronic) CAD (coronary artery disease) (Chronic) NSTEMI (non-ST elevated myocardial infarction) (Acute) Medical History Celiac disease ST elevation [place] (STEMI) Pure hypercholesterolemia Surgical History History of colonoscopy (~02/19/25) Hx of heart artery stent x2 History of cardiac cath (~01/2024) Social History Smoking/Tobacco Use Status: Never Smoking risk assessment performed?: Yes Alcohol Intake: current Alcohol Intake frequency: holidays/special occasions only Drug use: Never Substance use type: does not use Housing: house Do you feel safe at home: Yes Do you feel safe in your relationship?: Yes
[2025-03-08 10:00] LABS: PTT Activated 25.6 sec (20.6-30.2)
--- NOTE | 2025-03-08 10:02 | W.PM.HP.N ---
Date of service: 03/08/25 Time of Service: 10:02 Assessment and Plan Assessment and plan (1) NSTEMI (non-ST elevated myocardial infarction): Status: Acute Assessment and plan: - Patient initially presented with chest pain and was found to have an NSTEMI with initial troponin of 1700, and EKG showing mild ST depressions in V2, V3, V4, V5 and V6 - Was given p.o. aspirin and started on heparin drip - ED discussed with [facility] [place] who accepted patient for transfer for left heart catheterization, bed likely not available until 03/09/2025 -Without active chest pain, will give as needed sublingual nitro - Continue 81 mg daily aspirin - Changing home statin to Lipitor 40 at bedtime (2) CAD (coronary artery disease): Status: Chronic Assessment and plan: - History of, with STEMI and February 2024 - Treatment as noted above (3) HTN (hypertension): Status: Chronic Assessment and plan: - Continue home losartan Discharge Planning Discharge Planning: Accepted to [facility] [place] once bed is available likely in the next 24 to 36 hours History of Present Illness History of Present Illness Chief Complaint: chest pain Narrative: 59-year-old female with a past medical history of coronary artery disease status post STEMI in January 2024 presents to the emergency department with chest pain. Patient presented because she noted over the last week she has had intermittent exertional chest pain that had been resolving with rest. However, earlier this morning prior to arrival she woke with chest pain that has been present at rest but is since resolved since presenting to the emergency department. She states that she had associated dizziness and nausea both of which have also resolved. She described the chest pain as the central of her chest, squeezing and pressure-like in nature. She denied any headache, lightheadedness, fever, neck back or arm pain, shortness of breath, nausea vomiting or diarrhea. In the emergency department the patient was noted as having normal vital signs, normal CBC, CMP and normal physical exam. EKG showed ST depressions in V2 through V6 though this may have been from patient's previous STEMI. Troponin was found to be elevated at 1700. Case was discussed with [facility] [place] who recommended treating patient for NSTEMI and they have accepted the patient for transfer once a bed is available likely 03/09/2025. At which time emergency room provider paged hospitalist for admission for patient with an NSTEMI. Review of Systems All systems reviewed & are unremarkable except as noted in HPI and below PFSH All Active Problems (Updated 03/08/25 @ 10:06 by Orlando Gutiérrez MD) Acute non-ST elevation myocardial infarction (NSTEMI) (Acute) HTN (hypertension) (Chronic) CAD (coronary artery disease) (Chronic) NSTEMI (non-ST elevated myocardial infarction) (Acute) Medical History Celiac disease ST elevation [place] (STEMI) Pure hypercholesterolemia Surgical History History of colonoscopy (~02/19/25) Hx of heart artery stent x2 History of cardiac cath (~01/2024) Social History Smoking/Tobacco Use Status: Never Smoking risk assessment performed?: Yes Alcohol Intake: current Alcohol Intake frequency: holidays/special occasions only Drug use: Never Substance use type: does not use Housing: apartment Do you feel safe at home: Yes Do you feel safe in your relationship?: Yes Meds Allergies and Home Medications Allergies Allergy/AdvReac Type Severity Reaction Status Date / Time gluten Allergy Mild Diarrhea Verified 03/08/25 07:58 Home Medications ?Medication ?Instructions ?Recorded ?Confirmed ?Type losartan 25 mg tablet 25 mg PO DAILY 01/29/25 03/08/25 History metoprolol succinate 25 mg 25 mg PO DAILY 01/29/25 03/08/25 History tablet,extended release 24 hr nitroglycerin 0.4 mg sublingual 0.4 mg sublingual Q5-15M PRN 01/29/25 03/08/25 History tablet rosuvastatin 20 mg tablet 20 mg PO DAILY 01/29/25 03/08/25 History aspirin 81 mg tablet 81 mg PO DAILY 01/30/25 03/08/25 History Exam Narrative Exam Narrative: Well-appearing female sitting up in the chair no acute distress, ANO x 4, heart regular rhythm, lungs clear to auscultation bilaterally, abdomen soft, nontender, nondistended Results Labs 03/08/25 08:23 03/08/25 08:23 Labs: Laboratory Results - last 24 hr 03/08/25 08:23 WBC 7.42 RBC 4.90 Hgb 14.1 Hct 43.0 MCV 88 MCH 28.8 MCHC 32.8 RDW 12.8 Plt Count 330 MPV 9.6 Immature Gran % 0.4 Neutrophils % 77.6 Lymphocytes % 15.4 Monocytes % 5.8 Eosinophils % 0.5 Basophils % 0.3 Nucleated RBC % 0.0 Absolute Neutrophils 5.76 Absolute Lymphocytes 1.14 L Absolute Monocytes 0.43 Absolute Eosinophils 0.04 Absolute Basophils 0.02 Sodium 142 Potassium 3.6 Chloride 105 Carbon Dioxide 27.3 Anion Gap 9.7 BUN 11 Creatinine 0.70 Est GFR (CKD-EPI 2020) 84.88 Glucose 130 H Calcium 9.3 Magnesium 1.8 Total Bilirubin 0.50 AST 44 H ALT 38 Alkaline Phosphatase 63 Troponin I 1700 H* Total Protein 8.0 Albumin 4.7 Last Vital Signs Temp 98 F 03/08/25 07:59 Pulse 71 03/08/25 08:31 Resp 18 03/08/25 08:20 BP 153/75 H 03/08/25 08:31 Pulse Ox 97 03/08/25 08:31 VTE Prohylaxis Risk Level: Moderate/High Risk Contraindications: None Prophylaxis: Pharmacologic Time Spent Time spent with Patient: >75 minutes Time was spent: preparing to see the patient(eg.review tests), obtaining and/or reviewing separately otained hiistory, ordering medications,tests, procedures, referring, communicating with other health home health care case manager, indepentently interpreting results, counseling the patient and care coordination
[2025-03-08] MEDS: Aspirin 81 MG CHEW 243 MG PO (10:16)
[2025-03-08 10:27] LABS: Troponin I 1558 ng/L (<35)
--- NOTE | 2025-03-08 10:56 | W.PC.ACHO ---
Registration Status: REG ER Primary Language: Preferred Language: ED Information & Data Chief Complaint Chest Pain 03/08/25 10:06 Triage Note Dizziness this morning, 0600 03/08/25 07:59 CP not going away. Pt reports pain has been off and on with exertion. Has been ongoing since woke up this AM. STEMI Jan 04 2024. Medical / Surgical History (Last Reviewed 03/08/25 @ 10:01 by Orlando Gutiérrez MD) Celiac disease ST elevation [place] (STEMI) Pure hypercholesterolemia (Last Reviewed 03/08/25 @ 10:01 by Orlando Gutiérrez MD) History of colonoscopy (~02/19/25) Hx of heart artery stent History of cardiac cath (~01/2024) Most Recent Vital Signs Temperature 36.6 C 03/08/25 07:59 Temperature Source Oral 03/08/25 07:59 Pulse 71 03/08/25 08:31 Pulse 81 03/08/25 08:20 Respiratory Rate 18 03/08/25 08:20 Respiratory Effort Normal 03/08/25 08:08 Respiratory Depth Normal 03/08/25 08:08 Respiratory Pattern Normal 03/08/25 08:08 Blood Pressure 153/75 H 03/08/25 08:31 Blood Pressure Mean 102 03/08/25 08:31 Blood Pressure Position Supine 03/08/25 07:59 Pulse Oximetry 97 03/08/25 08:31 Oxygen Delivery Method Room Air 03/08/25 07:59 Oxygen Flow Rate 0 03/08/25 07:59 Pain Level 4 03/08/25 08:08 Allergies gluten Allergy (Mild, Verified 03/08/25 07:58) Diarrhea celiac Active Medications Generic Name Dose Route Start Last Admin Trade Name Lilliana PRN Reason Stop Dose Admin Heparin Sodium/Sodium Chloride 25,000 unit in 250 mls @ 9.5 mls/hr 03/08/25 09:45 03/08/25 09:57 IVINF 950 units/hr INFUSION EDDY 9.5 mls/hr Protocol Administration 950 UNITS/HR IV IV Catheter Type [Left Saline Lock Antecubital] IV Catheter Gauge [Left 18 Antecubital] Diet Orders Category Date Time Status npo [Nothing Per Oral] [DIET] Nutrition 03/08/25 09:40 Active Diagnostics 03/08/25 03/08/25 03/08/25 Range/Units 11:29 09:30 08:23 WBC 7.42 (4.4-10.8) 10^3/uL RBC 4.90 (3.93-5.22) 10^6/uL Hgb 14.1 (11.2-15.7) g/dL Hct 43.0 (36.0-46.0) % MCV 88 (80-95) fL MCH 28.8 (27.0-33.0) pg MCHC 32.8 (32.0-36.0) % RDW 12.8 (11.7-14.6) % Plt Count 330 (130-400) 10^3/uL MPV 9.6 (8.0-11.0) fL Immature Gran % 0.4 % Neutrophils % 77.6 % Lymphocytes % 15.4 % Monocytes % 5.8 % Eosinophils % 0.5 % Basophils % 0.3 % Nucleated RBC % 0.0 (0.0-0.3) % Absolute Neutrophils 5.76 (1.2-6.7) 10^3/uL Absolute Lymphocytes 1.14 L (1.2-3.4) 10^3/uL Absolute Monocytes 0.43 (0.1-0.8) 10^3/uL Absolute Eosinophils 0.04 (0.0-0.7) 10^3/uL Absolute Basophils 0.02 (0.0-0.2) 10^3/uL APTT 25.6 (20.6-30.2) sec Sodium 142 (136-145) mmol/L Potassium 3.6 (3.5-5.1) mmol/L Chloride 105 (98-107) mmol/L Carbon Dioxide 27.3 (20.0-31.0) mmol/L Anion Gap 9.7 (3-11) mmol/L BUN 11 (9-23) mg/dL Creatinine 0.70 (0.55-1.02) mg/dL Est GFR (CKD-EPI 2020) 84.88 (mL/min/1.73m2) Glucose 130 H (74-106) mg/dL Calcium 9.3 (8.3-10.6) mg/dL Magnesium 1.8 (1.6-2.6) mg/dL Total Bilirubin 0.50 (0.2-1.2) mg/dL AST 44 H (<34) U/L ALT 38 (10-49) U/L Alkaline Phosphatase 63 (46-116) U/L Troponin I Pending 1558 H* 1700 H* (<35) ng/L Total Protein 8.0 (5.7-8.2) g/dL Albumin 4.7 (3.2-5.0) g/dL Intake and Output - 24 Hour Total 03/08/25 07:53 thru 03/08/25 07:59 Weight 77.111 kg Falls Risk Assessment History of Falls No History 03/08/25 08:08 Contributing Factors No Factors 03/08/25 08:08 Ambulatory Aids Independent 03/08/25 08:08 Tubes/Lines None 03/08/25 08:08 Gait Evaluation No gait disturbance 03/08/25 08:08 Cognition No cognitive impairment 03/08/25 08:08 Fall Total Score 0 03/08/25 08:08 Level of Risk Standard/Low Risk 03/08/25 08:08 Problems (Last Reviewed 03/08/25 @ 10:01 by Orlando Gutiérrez MD) Acute non-ST elevation myocardial infarction (NSTEMI) (Acute) HTN (hypertension) (Chronic) CAD (coronary artery disease) (Chronic) NSTEMI (non-ST elevated myocardial infarction) (Acute) Attestation Statement: By documenting the first initial, last name, and credentials of the reporting nurse below, both parties acknowledge that all relevant information regarding the patient handoff has been communicated, and that all questions have been addressed to ensure continuity and safety of care. Additional Patient Information/Comments: Pt alert and oriented x4 no complaints of CP at this time Report Received From: [facility]
--- NOTE | 2025-03-08 10:58 | DI.VRAD_ITS ---
PROCEDURE INFORMATION: Exam: XR Chest Exam date and time: 03/08/2025 10:05 AM Age: 59 years old Clinical indication: Pain TECHNIQUE: Imaging protocol: Radiologic exam of the chest. Views: 1 view. COMPARISON: CR XR PORTABLE CHEST AP 01/04/2024 2:15 PM FINDINGS: Lungs: Calcified granulomas in the right lung. No focal consolidation. Pleural spaces: Unremarkable. No pleural effusion. No pneumothorax. Heart/Mediastinum: Unremarkable. No cardiomegaly. Bones/joints: Unremarkable. IMPRESSION: No acute findings. Dictated and Authenticated by: Inna Umaña MD. Orderin Brock Perry MD
--- NOTE | 2025-03-08 12:23 | NUR.NOTE ---
Nursing Note: At 11:30 am pt admited from the ER via WC pt assisted into the chair pt offered no complaints denies CP or SOB VSS pt on RA 99% pt placed on telemetry SR box #2 pt has Heparin running well 9.5cc/950 units next blood draw at 4pm pt tolerateing cardiac diet full admission done skin check done pt sitting up in the chair call chavez at side safety maintained pending transfer tomorrow am to higher level of care
[2025-03-08 13:25] LABS: Troponin I 1542 ng/L (<35)
--- NOTE | 2025-03-08 14:34 | PDOC.CMIN ---
Date of service: 03/08/25 Time of Service: 14:34 Care Management Initial Assmt Initial Assessment Reason for Hospitalization: NSTEMI Functional Status/Living Situation Patient Presentation: Nica was seated in a chair, visiting with her sister, Flores, when CM met with her. Nica presented to the emergency department with chest pain and, according to reports, is status post-STEMI (01/23). She has been accepted for transfer to [facility], pending bed availability. Nica is pleasant and open to conversation. She is independent at baseline, including driving, and does not have any community or home support. She indicated that she does not feel additional support is necessary at this time. During the meeting, the CM educated Nica on the use of RCT for future medical appointments, after Nica inquired about transport options. Nica shared that she had enjoyed a gluten-free lunch. CM will continue to follow. Town of Residence: [place] Significant Other/Family: Local (Flores - sister) Natural Supports: family Instrumental Activities of Daily Living (ADLs): Independent Medications Medication Management: No Issues/Barriers identified Advance Directives Advance Directives: Do you have an Advance Directive: N Today, 07:53 AD On File at [facility]: N Today, 07:53 Date Asked 03/08/25 Today, 07:58 AD Date Reviewed COLST On File at [facility] COLST Date Scanned Code Status Resuscitation Status Full Code Portal Pt does not currently have a portal and education provided: Yes Insurance Coverage/Financial Issues Insurance: Medicaid of [place] - [id number] Care Team Visit Care Team Role Provider Type Husam Yost Primary Care Provider NON-[facility] STAFF PHYSICIAN Orlando Gutiérrez MD Emergency Provider [facility] STAFF PHYSICIAN Bakari Guadarrama MD Admit Provider [facility] STAFF PHYSICIAN Attending Provider Discharge Potential Discharge Needs: PCP F/U Appt Anticipated Barriers to Discharge: Bed availability Patient/Family Education Needs: Review discharge instructions, discuss Ask Me Three Transportation: EMS Plan: Anticipate Nica will be transferred to [facility], pending bed availability. Transport will be coordinated as bed becomes available. Social Determinants of Health Screening Social Determinants of health last assessed in clinic: 03/08/25 Will the Patient Participate in the Screening?: Yes Do you worry about having a steady place to live?: no Problems where you live: no known problems In the past 12 months, have you had to go without electric, gas, oil or water in your home?: no 1. Within the past 12 months, we worried whether our food would run out before we got money to buy more.: Never true 2. Within the past 12 months, the food we bought just didn't last and we didn't have money to get more.: Never true Has lack of transportation kept you from medical appointments or from doing things needed for daily living?: no Has anyone in your life made you feel unsafe or unsupported?: no How hard is it for you to pay for the very basics like food, housing, medical care, and heating? Would you say it is:: Not hard at all Do you want help finding or keeping work or a job?: I do not need or want help If for any reason you need help with day-to-day activities such as bathing, preparing meals, shopping, managing finances, etc., do you get the help you need?: I don?t need any help How often do you feel lonely or isolated from those around you?: Never Do you speak a language other than Macedonian at home?: No Does the patient want assistance with any of the above?: No PFSH All Active Problems (Updated 03/08/25 @ 10:06 by Orlando Gutiérrez MD) Acute non-ST elevation myocardial infarction (NSTEMI) (Acute) HTN (hypertension) (Chronic) CAD (coronary artery disease) (Chronic) NSTEMI (non-ST elevated myocardial infarction) (Acute) Medical History Celiac disease ST elevation [place] (STEMI) Pure hypercholesterolemia Surgical History History of colonoscopy (~02/19/25) Hx of heart artery stent x2 History of cardiac cath (~01/2024) Social History Smoking/Tobacco Use Status: Never Smoking risk assessment performed?: Yes Alcohol Intake: current Alcohol Intake frequency: holidays/special occasions only Drug use: Never Substance use type: does not use Housing: apartment Do you feel safe at home: Yes Do you feel safe in your relationship?: Yes Readmission Within the Past 30 Days Yes or No: No
[2025-03-08 16:48] LABS: PTT Activated 60.7 sec (20.6-30.2)
[2025-03-08] MEDS: Atorvastatin 40 MG TAB 80 MG PO (20:03)
[2025-03-08] MEDS: Normal Saline Flush 10 ML SYR IVP (20:04)
[2025-03-08] MEDS: LORazepam 1 MG TAB PO (23:28)
[2025-03-08 23:50] LABS: PTT Activated 55.7 sec (20.6-30.2)
[2025-03-09 03:07] VITALS: BP 123/66; PULSE 63; RESP 16; TEMP 36.7; O2SAT 99
[2025-03-09 06:08] LABS: HCT 40.4 % (36.0-46.0); HGB 13.6 g/dL (11.2-15.7); MCH 29.8 pg (27.0-33.0); MCHC 33.7 % (32.0-36.0); MCV 88 fL (80-95); MPV 9.7 fL (8.0-11.0); Platelet Count 293 10^3/uL (130-400); RBC 4.57 10^6/uL (3.93-5.22); RDW 13.0 % (11.7-14.6); RDW-SD 42.0 fL; WBC 5.38 10^3/uL (4.4-10.8)
[2025-03-09 06:13] LABS: PTT Activated 61.1 sec (20.6-30.2)
[2025-03-09 06:16] LABS: Magnesium 1.9 mg/dL (1.6-2.6)
[2025-03-09 06:17] LABS: Anion Gap 9.8 mmol/L (3-11); BUN 15 mg/dL (9-23); CO2 26.2 mmol/L (20.0-31.0); Calcium 9.0 mg/dL (8.3-10.6); Chloride 105 mmol/L (98-107); Glucose 104 mg/dL (74-106); Potassium 3.8 mmol/L (3.5-5.1); Sodium 141 mmol/L (136-145)
[2025-03-09] MEDS: Heparin in 0.45% NaCl 25,000 UNIT/250 ML BAG 9.5 UNIT IVINF (06:19)
[2025-03-09 07:24] VITALS: BP 138/78; PULSE 64; RESP 17; TEMP 36.9; O2SAT 98
[2025-03-09] MEDS: Aspirin E.C. 81 MG TABEC PO (07:58)
[2025-03-09] MEDS: Normal Saline Flush 10 ML SYR IVP (07:58)
[2025-03-09] MEDS: Losartan 25 MG TAB 12.5 MG PO (09:01)
[2025-03-09 11:45] VITALS: BP 131/77; PULSE 68; RESP 16; TEMP 37; O2SAT 97
--- NOTE | 2025-03-09 14:55 | PHA.REVIEW2 ---
Pharmacy Admission Review Admission Clinical Review Admission Pharmacy Review: Acute non-ST elevation myocardial infarction (NSTEMI) (Acute) NSTEMI (non-ST elevated myocardial infarction) (Acute) gluten Allergy (Mild, Verified 03/08/25 07:58) Diarrhea Resuscitation Status Full Code Height 5 ft 4 in Weight 77.1 kg Pharmacy Admission Review Renal Dosing Renal Dosing: BUN 15 mg/dL (9-23) 03/09/25 05:19 Creatinine 0.65 mg/dL (0.55-1.02) 03/09/25 05:19 Medications needing adjustments: Reviewed (crcl=60ml/min; no meds need renal dosing ) Anticoagulation Anticoagulation: Hgb 13.6 g/dL (11.2-15.7) 03/09/25 05:19 Hct 40.4 % (36.0-46.0) 03/09/25 05:19 Plt Count 293 10^3/uL (130-400) 03/09/25 05:19 Creatinine 0.65 mg/dL (0.55-1.02) 03/09/25 05:19 Therapeutic Anticoagulation: Reviewed Medications: Heparin Opiate Usage Evaluate Pain Scale/Pains Meds: N/A Relevant Labs Relevant Labs: Sodium 141 mmol/L (136-145) 03/09/25 05:19 Potassium 3.8 mmol/L (3.5-5.1) 03/09/25 05:19 Chloride 105 mmol/L (98-107) 03/09/25 05:19 Magnesium 1.9 mg/dL (1.6-2.6) 03/09/25 05:19 Electrolytes, C-Reactive P, ESR: Reviewed (no intervention needed) DM Control DM Control: Reviewed Insulin Dosing, Diabetic Medication: am [id number]; no history of DM Cardiac Review Cardiac Review: Troponin I 1542 ng/L (<35) H* 03/08/25 12:40 BP, HR, EF%: Reviewed List meds needing interventions: HR=096/77; HR=68; on home losartan QTc Review QTc: Reviewed (atd=600) IV to PO Switch IV Medications: Reviewed Home Meds Home Med List reviewed: Reviewed Relevent Home Meds Not ordered & why?: metoprolol being held per provider Current Meds Current Medication Order Review: Reviewed Pharmacy Antibiotic Review Comments: no antibiotics
[2025-03-09 15:16] VITALS: BP 128/76; PULSE 66; RESP 16; TEMP 36.9; O2SAT 97
--- NOTE | 2025-03-09 15:31 | DSE_ITS ---
Date of service: 03/09/25 Time of Service: 15:31 DS: Diagnosis Discharge Diagnosis (1) NSTEMI (non-ST elevated myocardial infarction): Status: Acute (2) CAD (coronary artery disease): Status: Chronic (3) HTN (hypertension): Status: Chronic Discharge Plan Disposition Patient Disposition: Transfer-Acute Inpatient Care Specific Acute Inpt Facility: [facility] Condition: Good Discharge Details Reason For Visit: NSTEMI Admit Date/Time: 03/08/25 10:01 Admit Provider: Bakari Guadarrama Attending Provider: Bakari Guadarrama Primary Care Provider: Husam Yost [facility] Course Hospital Course: Patient initially presented with chest pain that had been exertional but then she woke up in the middle of the night with chest pain that resolved on its own, this was determined to be secondary to an NSTEMI as patient's troponin peaked at 1700. While in the emergency department [facility] cardiology was consulted and they accepted the patient in transfer for left heart catheterization. While hospitalized patient was on aspirin and heparin drip her troponin did improve and she did not have any additional episodes of chest pain. Therefore was determined that the patient was stable for transfer to [facility] for left heart catheterization. Home Meds and New Rx's Prescriptions: No Action losartan 25 mg tablet 25 mg PO DAILY nitroglycerin 0.4 mg tablet, sublingual 0.4 mg sublingual Q5-15M PRN Rx Instructions: do not exceed 3 doses per episode metoprolol succinate 25 mg tablet extended release 24 hr 25 mg PO DAILY rosuvastatin 20 mg tablet 20 mg PO DAILY aspirin 81 mg tablet 81 mg PO DAILY Discharge Instructions Activity:: Activity as Tolerated Equipment/Supplies:: No Equipment Needed Diet:: As Tolerated Discharge Orders Discharge Orders: Discharge Order (Routine); Ordered 03/09/25 Ordered By: Bakari Guadarrama DS: Summary Time Spent with Patient providing and/or coordinating discharge services: Greater than 30 minutes Status at Discharge Functional status at discharge: independent ambulation Overall status at discharge: patient is not back to baseline Mental Status: mental status grossly normal Speech and Movement: speech and movement normal Mood: congruent mood Affect: normal affect Exam Narrative Exam Narrative: Well-appearing female sitting up in the chair no acute distress, ANO x 4, heart regular rhythm, lungs clear to auscultation bilaterally, abdomen soft, nontender, nondistended Psych Mental Status: mental status grossly normal Speech and Movement: speech and movement normal Mood: congruent mood Affect: normal affect DS: Data Vitals/I&O Vitals and I&O: Vital Signs Temperature 98.4 F 03/09/25 15:16 Temperature Source Tympanic 03/09/25 15:16 Pulse 66 03/09/25 15:16 Pulse 78 03/08/25 11:31 Respiratory Rate 16 03/09/25 15:16 Respiratory Effort Normal 03/08/25 11:35 Respiratory Depth Normal 03/08/25 11:35 Respiratory Pattern Normal 03/08/25 11:35 Blood Pressure 128/76 03/09/25 15:16 Blood Pressure Mean 93 03/09/25 15:16 Blood Pressure Position Supine 03/08/25 07:59 Pulse Oximetry 97 03/09/25 15:16 Oxygen Delivery Method Room Air 03/09/25 15:16 Oxygen Flow Rate 0 03/09/25 15:16 Pain Level 0 03/09/25 15:16 Intake & Output 03/08/25 03/09/25 03/09/25 17:59 05:59 17:59 Intake Total 69.508 / 69.508 130.468 / 199.976 67.925 / 67.925 Balance 69.508 / 69.508 130.468 / 199.976 67.925 / 67.925 Weight 169 lb 15.622 oz Intake: IV 69.508 / 69.508 130.468 / 199.976 67.925 / 67.925 Other: Urine Color Yellow Urine Appearance Clear Urine Odor Normal Comment Voids independently. Data Completed and Pending Pending Labs at Discharge: 03/08/25 03/08/25 03/08/25 08:23 09:30 12:40 WBC 7.42 RBC 4.90 Hgb 14.1 Hct 43.0 MCV 88 MCH 28.8 MCHC 32.8 RDW 12.8 Plt Count 330 MPV 9.6 Immature Gran % 0.4 Neutrophils % 77.6 Lymphocytes % 15.4 Monocytes % 5.8 Eosinophils % 0.5 Basophils % 0.3 Nucleated RBC % 0.0 Absolute Neutrophils 5.76 Absolute Lymphocytes 1.14 L Absolute Monocytes 0.43 Absolute Eosinophils 0.04 Absolute Basophils 0.02 APTT 25.6 Sodium 142 Potassium 3.6 Chloride 105 Carbon Dioxide 27.3 Anion Gap 9.7 BUN 11 Creatinine 0.70 Est GFR (CKD-EPI 2020) 84.88 Glucose 130 H Calcium 9.3 Magnesium 1.8 Total Bilirubin 0.50 AST 44 H ALT 38 Alkaline Phosphatase 63 Troponin I 1700 H* 1558 H* 1542 H* Total Protein 8.0 Albumin 4.7 03/08/25 03/08/25 03/09/25 16:25 23:15 05:19 WBC 5.38 RBC 4.57 Hgb 13.6 Hct 40.4 MCV 88 MCH 29.8 MCHC 33.7 RDW 13.0 Plt Count 293 MPV 9.7 Immature Gran % Neutrophils % Lymphocytes % Monocytes % Eosinophils % Basophils % Nucleated RBC % Absolute Neutrophils Absolute Lymphocytes Absolute Monocytes Absolute Eosinophils Absolute Basophils APTT 60.7 H 55.7 H 61.1 H Sodium 141 Potassium 3.8 Chloride 105 Carbon Dioxide 26.2 Anion Gap 9.8 BUN 15 Creatinine 0.65 Est GFR (CKD-EPI 2020) 92.46 Glucose 104 Calcium 9.0 Magnesium 1.9 Total Bilirubin AST ALT Alkaline Phosphatase Troponin I Total Protein Albumin 03/09/25 11:20 WBC RBC Hgb Hct MCV MCH MCHC RDW Plt Count MPV Immature Gran % Neutrophils % Lymphocytes % Monocytes % Eosinophils % Basophils % Nucleated RBC % Absolute Neutrophils Absolute Lymphocytes Absolute Monocytes Absolute Eosinophils Absolute Basophils APTT Cancelled Sodium Potassium Chloride Carbon Dioxide Anion Gap BUN Creatinine Est GFR (CKD-EPI 2020) Glucose Calcium Magnesium Total Bilirubin AST ALT Alkaline Phosphatase Troponin I Total Protein Albumin PFSH All Active Problems (Updated 03/08/25 @ 10:06 by Orlando Gutiérrez MD) Acute non-ST elevation myocardial infarction (NSTEMI) (Acute) HTN (hypertension) (Chronic) CAD (coronary artery disease) (Chronic) NSTEMI (non-ST elevated myocardial infarction) (Acute) Medical History Celiac disease ST elevation [place] (STEMI) Pure hypercholesterolemia Surgical History History of colonoscopy (~02/19/25) Hx of heart artery stent x2 History of cardiac cath (~01/2024) Social History Smoking/Tobacco Use Status: Never Smoking risk assessment performed?: Yes Alcohol Intake: current Alcohol Intake frequency: holidays/special occasions only Drug use: Never Substance use type: does not use Housing: apartment Do you feel safe at home: Yes Do you feel safe in your relationship?: Yes Time Spent with Patient Time Spent with Patient: <45 minutes Time was spent: preparing to see the patient(eg.review tests), obtaining and/or reviewing separately otained hiistory, ordering medications,tests, procedures, referring, communicating with other health medicare nurse, indepentently interpreting results, counseling the patient and care coordination
--- NOTE | 2025-03-09 15:49 | PDOC.CMDIS ---
Date of service: 03/09/25 Time of Service: 15:49 LACE Index Scoring Tool Questions: Length of Stay (in days): 1 Was the patient admitted via the E.D.?: Yes E.D. Visits: 1 Answers: Total Score: 5 Risk of Readmission: Low Risk Care Management Discharge Plan Reason for Hospitalization: NSTEMI Discharge Plan: Nica is being transferred to [facility] today. Transportation will be coordinated by nursing supervisor [employer]. Patient/Family Education Needs: review of discharge instructions, activity, limitations, and discharge plan of care. Discuss ask me three.
== END 2025-03-09 16:30 | disposition short-term general hospital (02) | DRG 282 ==
LOC: ER 10:06 → MS 11:22
PROVIDERS: Hospitalist; Admitting Provider Family Medicine; Emergency Provider Student in an Organized Health Care Education/Training Program; PCP Naturopath; Responsible Provider Family Medicine; Visit Provider Family Medicine
DX: I21.4 Non-ST elevation (NSTEMI) myocardial infarction (principal); I25.10 Atherosclerotic heart disease of native coronary artery without angina pectoris; I10 Essential (primary) hypertension; I25.2 Old myocardial infarction; K90.0 Celiac disease; Z79.899 Other long term (current) drug therapy
CPT/HCPCS: 00123; 36415; 80048; 80053; 85027; 93005; 99291; 71045; 83735; 84484; 85025; 85730; 93010; 99223; 99238; J1644

== ENCOUNTER 2025-04-01 10:00 | Outpatient (RCR) | payer MEDICAID, SELFPAY ==
--- NOTE | 2025-03-27 10:15 | RT.EKG_ITS ---
APPROVED REPORT Exam: Resting ECG Reason for Exam: CR Baseline EKG Patient Location: O HR:77 bpm ECG Measurements Heart Rate 77 AXIS SC 193 P 31 QRSd 93 QRS -25 QT 386 T 30 QTc 437 Conclusion Sinus rhythm...normal P axis, V-rate 50- 99 Left axis Late transition
== END 2025-04-01 23:59 | disposition home or self-care (01) ==
LOC: CR 10:00
PROVIDERS: PCP Naturopath; Visit Provider Internal Medicine Cardiovascular Disease
DX: I21.4 Non-ST elevation (NSTEMI) myocardial infarction (principal); Z95.2 Presence of prosthetic heart valve; Z51.89 Encounter for other specified aftercare
CPT/HCPCS: S9472